=== PATIENT | female | born 1965 | race African-American/Black ===

== ENCOUNTER 2017-08-12 21:17 | Emergency (ER) | payer MEDICAID ==
[~2017-08-12] VITALS: Ht 162.6 cm; Wt 75.7 kg
[2017-08-12 21:41] VITALS: BP 117/62
== END 2017-08-13 | disposition left against medical advice (07) ==
LOC: ER 22:40
DX: M54.9 Dorsalgia, unspecified (principal); M79.605 Pain in left leg; Z53.21 Procedure and treatment not carried out due to patient leaving prior to being seen by health care provider

== ENCOUNTER 2024-02-19 15:30 | Emergency (ER) | payer MEDICAID, OTHER ==
[~2024-02-19] VITALS: Ht 165.1 cm; Wt 81.0 kg
[2024-02-19 15:38] VITALS: BP 137/80; PULSE 81; RESP 16; TEMP 98.3; O2SAT 100
[2024-02-19] MEDS ORDERED: TOPUD MT (17:27)
== END 2024-02-19 19:04 | disposition home or self-care (01) ==
LOC: ER 15:30
DX: S82.832A Other fracture of upper and lower end of left fibula, initial encounter for closed fracture (principal); I10 Essential (primary) hypertension; X58.XXXA Exposure to other specified factors, initial encounter; Y93.89 Activity, other specified; Y92.89 Other specified places as the place of occurrence of the external cause; Y99.8 Other external cause status
CPT/HCPCS: 73590; 73610; 29515; 99284; Z7610

== ENCOUNTER 2024-06-09 14:34 | Emergency (ER) | payer OTHER ==
[~2024-06-09] VITALS: Ht 167.6 cm; Wt 81.6 kg
[~2024-06-09 14:34] MED LIST: TOPUD MT
[2024-06-09 14:38] VITALS: O2SAT 100
[2024-06-09 14:42] VITALS: BP 123/73; PULSE 127; RESP 16; TEMP 98; O2SAT 99
[2024-06-09] MEDS ORDERED: IBUP-2029 MT (18:33)
== END 2024-06-09 18:51 | disposition home or self-care (01) ==
LOC: ER 14:34
DX: S83.91XA Sprain of unspecified site of right knee, initial encounter (principal); I10 Essential (primary) hypertension; F10.90 Alcohol use, unspecified, uncomplicated; Z98.890 Other specified postprocedural states; X58.XXXA Exposure to other specified factors, initial encounter; Y93.89 Activity, other specified; Y92.89 Other specified places as the place of occurrence of the external cause; Y99.8 Other external cause status; Y90.9 Presence of alcohol in blood, level not specified
CPT/HCPCS: 73560; 99283